=== PATIENT | male | born 1975 | race Caucasian/White ===

== ENCOUNTER → 2019-01-17 | Outpatient (REF) | payer OTHER ==
[2019-01-17 17:47] LABS: INR 1.01; PROTHROMBIN TIME 13.4 SECONDS (12.1-14.4)
[2019-01-17 17:48] LABS: PARTIAL THROMBOPLASTIN TIME 30.2 SECONDS (25.4-37.6)
== END ==
LOC: M LABDRAW1 15:45
PROVIDERS: ATTEND Physician Assistant
DX: Z01.812 Encounter for preprocedural laboratory examination (principal)

== ENCOUNTER → 2019-05-11 | Outpatient (REF) | payer OTHER ==
[2019-05-11 16:11] LABS: BLOOD UREA NITROGEN 22 MG/DL (7-18); CREATININE FOR GFR 0.85 MG/DL (0.70-1.30); GLOMERULAR FILTRATION RATE > 60.0 (>60)
== END ==
LOC: M LABDRAW1 14:26
PROVIDERS: ATTEND Physical Medicine & Rehabilitation
DX: Z01.812 Encounter for preprocedural laboratory examination (principal)

== ENCOUNTER → 2020-01-16 | Outpatient (REF) | payer OTHER ==
[2020-01-16 13:02] LABS: PLATELET COUNT, AUTOMATED 320 10^3/uL (150-450)
[2020-01-16 13:13] LABS: INR 0.92; PROTHROMBIN TIME 12.1 SECONDS (11.8-14.0)
[2020-01-16 13:14] LABS: PARTIAL THROMBOPLASTIN TIME 29.8 SECONDS (25.0-38.4)
[2020-01-16 13:21] LABS: COLLAGEN EPINEPHRINE > 300.0 SECONDS (74-162)
[2020-01-16 13:29] LABS: COLLAGEN ADP 101 SECONDS (56-103)
== END ==
LOC: M LABDRAW1 12:17
PROVIDERS: ATTEND Physician Assistant
DX: M48.07 Spinal stenosis, lumbosacral region (principal); M47.27 Other spondylosis with radiculopathy, lumbosacral region

== ENCOUNTER → 2020-05-01 | Outpatient (CLI) | payer BC ==
--- NOTE | 2020-05-01 19:48 | REP ---
Clinical: Asymmetric blood pressures to the bilateral upper extremities . Technique: Castillo scale and color Doppler evaluation using linear high frequency transducer Findings: Two-dimensional castillo scale and color images demonstrate minimal atheromatous plaquing with laminar flow and no appreciable narrowing. Color Doppler interrogation demonstrates normal arterial wave patterns and velocities with no significant spectral broadening. Normal flow direction is appreciated in the bilateral vertebral arteries. RIGHT (cm/s) LEFT (cm/s) ICA peak systolic velocity 90.4 87.2 ICA diastolic velocity 40.4 38.8 ECA peak systolic velocity 83.4 95.5 CCA peak systolic velocity 143.0 144.7 ICA/CCA ratio 0.63 0.60 Impression: No hemodynamically significant areas of narrowing or stenosis appreciated. Based on set standards narrowing falls within the less than 50% range. Electronically Signed by Anthony Christie MD 05/01/2020 07:40 P
== END ==
LOC: M RAD 09:58
PROVIDERS: ATTEND Internal Medicine Cardiovascular Disease
DX: I73.9 Peripheral vascular disease, unspecified (principal); I65.23 Occlusion and stenosis of bilateral carotid arteries

== ENCOUNTER → 2020-05-04 | Outpatient (CLI) | payer BC | LOC: M LABSMTC 10:49 | PROVIDERS: ATTEND Physical Medicine & Rehabilitation | DX: Z11.59 Encounter for screening for other viral diseases (principal) ==

== ENCOUNTER → 2020-05-05 | Outpatient (REF) ==
[2020-05-05 12:19] LABS: COLLAGEN EPINEPHRINE 149 SECONDS (74-162)
== END ==
LOC: M LAB LCGH 10:18
PROVIDERS: ATTEND Physical Medicine & Rehabilitation
DX: Z01.812 Encounter for preprocedural laboratory examination (principal)

== ENCOUNTER → 2023-11-09 | Outpatient (CLI) | payer OTHER | LOC: M PLAIMG 07:01 | PROVIDERS: ATTEND Physician Assistant | DX: M47.27 Other spondylosis with radiculopathy, lumbosacral region (principal) ==